=== PATIENT | female | born 1970 | race American Indian/Alaskan Native ===

== ENCOUNTER 2019-01-15 07:44 | Emergency (ER) | payer OTHER ==
[2019-01-15] MEDS ORDERED: ASPIRIN PO ONE (07:50)
--- NOTE | 2019-01-15 08:46 | XRay Report ---
PROCEDURE: XR CHEST ROUTINE 2V TECHNIQUE: Chest, PA and lateral HISTORY: Chest Pain COMPARISON: None FINDINGS: The heart size is normal. There is no pulmonary vascular congestion seen. Mediastinal contours are normal. Lungs are clear. There is no pleural effusion seen. There is no pneumothorax seen. IMPRESSION: No acute abnormality identified. This document is electronically signed by Laurie De La Torre MD., January 15 2019 08:44:42 AM ET
[2019-01-15 08:59] LABS: Basophils # (Auto) 0.1 K/mm3 (0.0-0.1); Basophils % (Auto) 0.9 % (0.0-1.8); Eosinophils # (Auto) 0.2 K/mm3 (0.0-0.4); Hematocrit 26.4 % (30.3-42.9); Hemoglobin 8.2 gm/dl (10.1-14.3); Lymphocytes # (Auto) 2.1 K/mm3 (1.2-5.4); Lymphocytes % (Auto) 27.1 % (13.4-35.0); Mean Corpuscular HGB Conc 31 % (30-34); Monocytes # (Auto) 0.7 K/mm3 (0.0-0.8); Platelet Count 365 K/mm3 (140-440); Red Blood Count 4.06 M/mm3 (3.65-5.03)
[2019-01-15 09:19] LABS: BUN/Creatinine Ratio 8; Blood Urea Nitrogen 6 mg/dL (7-17); Calcium 9.2 mg/dL (8.4-10.2); Hemolysis Index 2
[2019-01-15 09:23] LABS: Mean Corpuscular Hemoglobin 20 pg (28-32); Mean Corpuscular Volume 65 fl (79-97); Red Cell Distribution Width 21.7 % (13.2-15.2)
--- NOTE | 2019-01-15 09:26 | Emergency Department Report ---
ED Chest Pain HPI - General Chief Complaint: Chest Pain Stated Complaint: CHEST/LT ARM PAIN/ FATIGUE Time Seen by Provider: 01/15/19 08:50 Source: patient Mode of arrival: Ambulatory Limitations: No Limitations - History of Present Illness Initial Comments: 48-year-old female with history of anemia presents to ED with 3 day history of chest pain. Patient states pain is sharp, constant, left-sided, nonradiating. Cough is reported. States pain is worse with deep breath and cough, denies leg pain or swelling. Patient does report a fever couple of days ago. MD Complaint: chest pain -: days(s) (3) Pain Location: left chest Pain Radiation: none Severity: mild Quality: sharp Consistency: constant Improves With: nothing Worsens With: inspiration re: nausea. denies: vomting, diaphoresis, dyspnea Other Symptoms: cough, fever. denies: leg swelling - Related Data Previous Rx's Medication Instructions Recorded Last Taken Type Naproxen [Naprosyn] 500 mg PO BID #20 tablet 01/15/19 Unknown Rx Allergies Allergy/AdvReac Type Severity Reaction Status Date / Time No Known Allergies Allergy Verified 01/15/19 09:07 Heart Score - HEART Score History: Slightly suspicious EKG: Normal Age: 45-65 Risk factors: No known risk factors Troponin: < normal limit HEART Score: 1 ED Review of Systems ROS: Stated complaint: CHEST/LT ARM PAIN/ FATIGUE Other details as noted in HPI Comment: All other systems reviewed and negative Constitutional: fever Respiratory: cough. denies: shortness of breath Cardiovascular: chest pain Gastrointestinal: nausea. denies: vomiting Musculoskeletal: other (denies leg pain or swelling) ED Past Medical Hx - Past Medical History Previous Medical History?: Yes Additional medical history: Anemia - Surgical History Past Surgical History?: No - Social History Smoking Status: Never Smoker Substance Use Type: None - Medications Home Medications: Home Medications Medication Instructions Recorded Confirmed Last Taken Type Naproxen [Naprosyn] 500 mg PO BID #20 tablet 01/15/19 Unknown Rx ED Physical Exam - General Limitations: No Limitations General appearance: alert, in no apparent distress - Head Head exam: Present: atraumatic, normocephalic - Eye Eye exam: Present: normal appearance - ENT ENT exam: Present: mucous membranes moist - Neck Neck exam: Present: normal inspection - Respiratory Respiratory exam: Present: normal lung sounds bilaterally, chest wall tenderness. Absent: respiratory distress - Cardiovascular Cardiovascular Exam: Present: regular rate, normal rhythm - GI/Abdominal GI/Abdominal exam: Present: soft. Absent: distended, tenderness - Extremities Exam Extremities exam: Absent: pedal edema, calf tenderness - Neurological Exam Neurological exam: Present: alert, oriented X3 - Psychiatric Psychiatric exam: Present: normal affect, normal mood - Skin Skin exam: Present: warm, dry, intact, normal color. Absent: rash ED Course Vital Signs 01/15/19 01/15/19 01/15/19 08:06 12:35 13:01 Temperature 98.3 F 98.2 F 98.3 F Pulse Rate 80 69 65 Respiratory 18 16 17 Rate Blood Pressure 132/84 140/91 Blood Pressure 131/85 [Right] O2 Sat by Pulse 100 100 98 Oximetry ED Medical Decision Making - Lab Data Result diagrams: 01/15/19 08:25 01/15/19 08:25 - EKG Data -: EKG Interpreted by Ca EKG shows normal: sinus rhythm, axis, intervals, QRS complexes, ST-T waves Rate: normal - EKG Data Interpretation: no acute changes - Radiology Data Radiology results: report reviewed, image reviewed - Medical Decision Making - EKG normal - Trop negative x 2 - D-Dimer elevated, however CTA Chest negative - vitals normal - appears nontoxic, in no distress - possibly chest wall pain - return precautions given - outpatient f/u advised - pt informed of incidental lung nodule on CT, and need for repeat imaging in 12 mos - Differential Diagnosis chest wall pain, PE, ACS Critical care attestation.: If time is entered above; I have spent that time in minutes in the direct care of this critically ill patient, excluding procedure time. ED Disposition Clinical Impression: Chest wall pain, URI (upper respiratory infection) Disposition: -01 TO HOME OR SELFCARE Is pt being admited?: No Condition: Stable Instructions: Chest Pain (ED), Costochondritis (ED) Prescriptions: Naproxen [Naprosyn] 500 mg PO BID #20 tablet Referrals: PRIMARY CARE, [Primary Care Provider] - 3-5 Days Time of Disposition: 14:08
[2019-01-15 10:05] LABS: INR 0.95 (0.87-1.13)
[2019-01-15 10:06] LABS: Partial Thromboplastin Time 30.7 Sec. (24.2-36.6)
[2019-01-15 12:23] LABS: HCG Qualitative,Urine Negative (Negative)
[2019-01-15 13:02] VITALS: BP 131/85
--- NOTE | 2019-01-15 13:40 | Cat Scan Report ---
PROCEDURE: CT ANGIO CHEST TECHNIQUE: CT angiography of the chest performed. IV contrast was administered. Axial images and alireza nal and sagittal reformatted images were obtained. Rotational MIP reformatted images were obtained. HISTORY: chest pain COMPARISON: None FINDINGS: There is no aortic dissection seen. There is no abnormal mediastinal or hilar mass seen. There is no thoracic aortic aneurysm. There are no abnormal pulmonary arterial filling defects seen to indicate acute pulmonary emboli. There is no pleural effusion seen. There is a 5 mm nodule in the right middle lobe. Remaining lungs are clear. There is no pneumothorax seen. IMPRESSION: There is no aortic dissection or pulmonary embolism seen. 5 mm right middle lobe nodule seen. According to Fleischner criteria guidelines, no follow-up necessa ry for patient of lobe malignancy risks. Consider 12 month follow-up if patient at high risk. This document is electronically signed by Laurie De La Torre MD., January 15 2019 01:38:47 PM ET
== END 2019-01-15 14:18 | disposition home or self-care (01) ==
LOC: ED 07:44
DX: J06.9 Acute upper respiratory infection, unspecified (principal); R07.89 Other chest pain; Z86.2 Personal history of diseases of the blood and blood-forming organs and certain disorders involving the immune mechanism
CPT/HCPCS: 36415; 71046; 71275; 80048; 81025; 84484; 85025; 85379; 85610; 85730; 93005; 93010; 99285; Q9967